=== PATIENT | female | born 1990 | race Caucasian/White ===

== ENCOUNTER 2016-05-18 19:02 | Observation (INO) | payer MEDICAID ==
--- NOTE | 2016-05-18 19:40 | EDM.PDOC ---
ED HPI GENERAL MEDICAL PROBLEM - General Chief Complaint: General Stated Complaint: SWALLOWED PEN Time Seen by Provider: 05/18/16 19:10 Source of Information: Reports: Patient, Police History Limitations: Reports: No limitations - History of Present Illness INITIAL COMMENTS - FREE TEXT/NARRATIVE: Pt was in court today. She felt stressed and about 11 am she swallowd a pen. She is now having pain in the epigastric area. She has swallowed many objects in the past. [facility] Onset: today, other ( at 11 am. ) Duration: Hour(s):, Other ( Pt is now haVING EPIGASTRIC PAIN. ) Location: Reports: abdomen Associated Symptoms: Reports: other ( ABDOMANAL PAIN. ) Right side Abdomen Pain Score (Numeric/FACES): 5 - Related Data Allergies Allergy/AdvReac Type Severity Reaction Status Date / Time codeine Allergy Rash Verified 05/18/16 19:15 [From Tylenol-Codeine #3] shellfish derived Allergy Swelling Verified 05/18/16 19:15 Home Meds: Home Meds OLANZapine [ZyPREXA] 5 mg PO DAILY 05/18/16 [History] OLANZapine [ZyPREXA] 10 mg PO BEDTIME 05/18/16 [History] Omeprazole 20 mg PO DAILY 05/18/16 [History] PARoxetine HCl [Paxil] 40 mg PO DAILY 05/18/16 [History] Past Medical History HEENT History: Reports: Impaired vision CLINICAL TRIAL LEADER History: Reports: Polycystic Ovaries Musculoskeletal History: Reports: Fracture Neurological History: Reports: Migraines Psychiatric History: Reports: ADD, Addiction, Anxiety, Bipolar, Depression Hematologic History: Reports: Other (see below) Other Hematologic History: Hep C - Infectious Disease History Infectious Disease History: Reports: Hepatitis C - Past Surgical History GI Surgical History: Reports: Appendectomy, Other (see below) Other GI Surgeries/Procedures: perforate stomach "after swallowing a paper clip ". 3 foreign body removal. Social & Family History - Tobacco Use Smoking Status *Q: Current Every Day Smoker Years of Tobacco use: 10 Packs/Tins Daily: 0.5 - Caffeine Use Caffeine Use: Reports: Energy drinks, Soda - Recreational Drug Use Recreational Drug Use: No Recreational Drug Type: Reports: Heroin, Methamphetamine Recreational Drug Use Frequency: Daily ED ROS GENERAL - Review of Systems Review Of Systems: See Below Constitutional: Reports: no symptoms HEENT: Reports: No symptoms Respiratory: Reports: No Symptoms Cardiovascular: Reports: No symptoms Endocrine: Reports: no symptoms GI/Abdominal: Reports: Abdominal pain, Other (PT ADMITTED TO SWALLOWING A PEN. ) : Reports: no symptoms Musculoskeletal: Reports: no symptoms Skin: Reports: no symptoms Neurological: Reports: No Symptoms Psychiatric: Reports: Agitation ED EXAM, GENERAL - Physical Exam Exam: See Below Free Text/Narrative:: pT WAS STRESSED IN COURT TODAY AND AT 11 AM SHE SWALLOWED A PEN. Exam Limited By: No limitations General Appearance: alert, anxious Ears: normal TMs Nose: normal inspection Throat/Mouth: Normal inspection Head: atraumatic Neck: normal inspection Respiratory/Chest: no respiratory distress Cardiovascular: regular rate, rhythm GI/Abdominal: other (PAIN IN THE EPIGASTRIC AREA) (Female) Exam: Deferred Rectal (Female) Exam: Deferred Back Exam: normal inspection Extremities: normal inspection, increased warmth Neurological: oriented Psychiatric: normal affect Course - Vital Signs Last Recorded V/S: Last Vital Signs Temp 36.6 C 05/18/16 19:11 Pulse 115 H 05/18/16 19:11 Resp 16 05/18/16 19:11 BP 138/97 H 05/18/16 19:11 Pulse Ox 97 05/18/16 19:11 - Orders/Labs/Meds Orders: Active Orders 24 hr Category Date Time Status Abdomen Series w Chest 1V [CR] Stat Exams 05/18/16 19:32 Taken COMPREHENSIVE METABOLIC PN,CMP [CHEM] Urgent Lab 05/18/16 19:50 Received Sodium Chloride 0.9% [Normal Saline] 1,000 ml Med 05/18/16 19:45 Active IV ASDIRECTED Medication Orders Sodium Chloride (Normal Saline) 1,000 mls @ 999 mls/hr IV ASDIRECTED SERVANDO Labs: Laboratory Tests 05/18/16 05/18/16 05/18/16 Range/Units 19:50 19:55 19:55 WBC 8.2 (4.5-11.0) K/uL RBC 4.52 (3.30-5.50) M/uL Hgb 12.7 (12.0-15.0) g/dL Hct 38.5 (36.0-48.0) % MCV 85 (80-98) fL MCH 28 (27-31) pg MCHC 33 (32-36) % Plt Count 252 (150-400) K/uL Neut % (Auto) 62 (36-66) % Lymph % (Auto) 24 (24-44) % [place] % (Auto) 11 H (2-6) % Eos % (Auto) 2 (2-4) % Baso % (Auto) 1 (0-1) % Urine Color Yellow Urine Appearance Cloudy Urine pH 8.0 (4.5-8.0) Ur Specific [place] 1.015 (1.008-1.030) Urine Protein Negative (NEGATIVE) mg/dL Urine Glucose (UA) Normal (NEGATIVE) mg/dL Urine Ketones Negative (NEGATIVE) mg/dL Urine Occult Blood Negative (NEGATIVE) Urine Nitrite Negative (NEGATIVE) Urine Bilirubin Negative (NEGATIVE) Urine Urobilinogen Normal (NORMAL) mg/dL Ur Leukocyte Esterase Negative (NEGATIVE) Urine RBC 0-5 (0-5) Urine WBC 0-5 (0-5) Ur Epithelial Cells Moderate Amorphous Sediment Many Urine Bacteria Many Urine Mucus Not seen Urine HCG, Qual Negative Meds: Medications Generic Name Dose Route Start Last Admin Trade Name Freq PRN Reason Stop Dose Admin Sodium Chloride 1,000 mls @ 999 mls/hr 05/18/16 19:45 Normal Saline IV ASDIRECTED [facility] - Re-Assessments/Exams Free Text/Narrative Re-Assessment/Exam: 05/18/16 20:22 PT HAD A FLAT PLATE OF THE ABDOMAN WHICH SHOWED A PEN INTACT. iT STILL REMAINS IN THE STOMACH BUBBLE. Departure - Departure Time of Disposition: 20:23 Disposition: Admitted As Inpatient 68 Condition: fair Clinical Impression: Foreign body in stomach Forms: ED Department Discharge Care Plan Goals: ADMIT TO dR Kim - My Orders Last 24 Hours: My Active Orders 05/18/16 19:32 Abdomen Series w Chest 1V [CR] Stat 05/18/16 19:45 Sodium Chloride 0.9% [Normal Saline] 1,000 ml IV ASDIRECTED 05/18/16 19:50 COMPREHENSIVE METABOLIC PN,CMP [CHEM] Urgent - Assessment/Plan Last 24 Hours: My Active Orders 05/18/16 19:32 Abdomen Series w Chest 1V [CR] Stat 05/18/16 19:45 Sodium Chloride 0.9% [Normal Saline] 1,000 ml IV ASDIRECTED 05/18/16 19:50 COMPREHENSIVE METABOLIC PN,CMP [CHEM] Urgent
[2016-05-18] MEDS ORDERED: Sodium Chloride 0.9% 1,000 ML IV SCH (19:45)
[2016-05-18] MEDS ORDERED: fentaNYL 100 MCG/2 ML SDV ONE (20:29)
[2016-05-18] MEDS ORDERED: Midazolam 1 MG/ML 2 ML SDV ONE (20:29)
[2016-05-18] MEDS ORDERED: Propofol 200 MG/20 ML SDV ONE ×2 (20:29→21:14)
[2016-05-18] MEDS ORDERED: Ondansetron 4 MG/2 ML SDV IVPUSH PRN (21:21)
[2016-05-18] MEDS ORDERED: Zolpidem 5 MG Tab PO PRN (21:21)
[2016-05-18] MEDS ORDERED: diphenhydrAMINE 50 MG/ML SDV IVPUSH PRN (21:21)
[2016-05-18] MEDS ORDERED: Docusate Sodium 100 MG Cap PO PRN (21:21)
[2016-05-18] MEDS ORDERED: Bisacodyl 5 MG Tab PO PRN (21:21)
[2016-05-18] MEDS ORDERED: Metoclopramide 10 MG/2 ML SDV IV PRN (21:21)
[2016-05-18] MEDS ORDERED: Promethazine 25 MG/ML SDV IM PRN (21:21)
[2016-05-18] MEDS: Benzocaine/Cetylpyridinium/Menthol Lozenge MUCMEM PRN (22:47)
--- NOTE | 2016-05-19 08:13 | CONS ---
DATE OF SERVICE: 05/18/2016 REFERRING PHYSICIAN: CONSULTING PHYSICIAN: Dillan Palomo MD This is a consult from Dr. Downs. REASON FOR CONSULTATION: Foreign body. HISTORY OF PRESENT ILLNESS: She is a 26-year-old female, who apparently swallowed a pen in court today. The patient presents with epigastric pain. This is an ongoing problem. She has swallowed many foreign bodies in the past. PAST MEDICAL HISTORY: Swallowing foreign bodies such as pens and paper clips previously. Impaired vision, polycystic ovarian disease, migraines, attention deficit disorder, addiction, anxiety, bipolar, depression, hepatitis C. SURGICAL HISTORY: Exploratory laparotomy for foreign body removal. SOCIAL HISTORY: She is currently a smoker. FAMILY HISTORY: Noncontributory. REVIEW OF SYSTEMS: GENERAL: She is appropriate for her condition. HEENT: No symptoms. RESPIRATORY: No shortness of breath. CARDIOVASCULAR: No chest pain. ENDOCRINE: No symptoms. GASTROINTESTINAL: As above. GENITOURINARY: No dysuria. MUSCULOSKELETAL: No symptoms. The remainder systems reviewed and is negative. PHYSICAL EXAMINATION: VITAL SIGNS: Stable. HEENT: Pupils equal, round, and reactive to light. NECK: Supple and nontender. CARDIOVASCULAR: Regular rhythm and rate. RESPIRATORY: Lungs clear to consultation bilaterally. ABDOMEN: Bowel sounds positive. EXTREMITIES: Full range of motion. Strength 5/5. NEUROLOGICAL: Alert and oriented x3. PSYCH: No gross depression. IMAGING: I did review the x-ray which shows foreign body. LABORATORY RESULTS: Show hemoglobin 12.7. ASSESSMENT: Foreign body. PLAN: We will take the patient to the operating room to see if we can remove this via EGD. If this is refractory to this, we will perform an exploratory laparotomy and subsequent gastric resection. We discussed risks, benefits, alternatives, and limitations, including, but not limited to infection, bleeding, and perforation. The patient understands these risks and wishes to proceed. Dillan Palomo MD /[id number]
[2016-05-19] MEDS ORDERED: Iohexol 300 MG/ML 30 ML Bottle PO ONE (08:15)
--- NOTE | 2016-05-19 08:16 | OR ---
DATE OF PROCEDURE: 05/18/2016 PROCEDURE: EGD. FINDINGS: Foreign body (ink pen). COMPLICATIONS: None. MANAGER ED: None. ANESTHETIC: MAC. INDICATIONS: A 26-year-old female, who swallowed an ink pen. This happened earlier today. This is an ongoing problem. She swallowed several of these. Risks, benefits, alternatives, and limitations, including, infection, bleeding, and perforation were explained to the patient. We also discussed the plan, which will be EGD and any evidence of perforation will require exploratory laparotomy. We also discussed the possibility of delayed perforation, the role of CT scan and the role of the emergency room once discharged. PROCEDURE IN DETAIL: The patient was placed in left lateral decubitus position. The EGD scope was introduced and advanced atraumatically to the gastric body. The pen was noted to be a light black ink ball standard pen. This was grasped with Lasso near the tip and this was brought in to the camera lens (using the camera as a shield for the tip of the pen). This was then drawn back into the esophagus and through the mouth. Once this was in the mouth, forceps was used to extract this. The scope was then reintroduced and the duodenum, stomach, and esophagus were inspected twice. This was performed by reducing the scope. Small amount of bleeding in the cavity, however, this was not consistent with the pen hitting the palate of the mouth. No other abnormalities noted. The patient tolerated the procedure well. Dillan Palomo MD /[id number]
[2016-05-19] MEDS ORDERED: Iohexol 647 MG/ML 10 ML SDV PO PRN (08:41)
--- NOTE | 2016-05-19 08:45 | CR ---
Heart size within normal limits. No focal consolidation. No pneumothorax. There is a pen within the stomach. No gross evidence for free air. Large amount of fecal residual.
--- NOTE | 2016-05-19 09:11 | PN ---
DATE OF SERVICE: 05/19/2016 SUBJECTIVE: The patient is doing well. She has no complaints. Her pain is absent. No nausea, vomiting, shortness of breath, or chest pain. OBJECTIVE: VITAL SIGNS: Stable. She remains afebrile. CARDIOVASCULAR: Regular rate and rhythm. RESPIRATORY: Lungs are clear to auscultation bilaterally. ABDOMEN: Bowel sounds positive. IMAGING: Radiology was unable to determine if there is a free air component. Therefore, we will send the patient for CT scan for evaluation for possible perforation. If this is negative, the patient will be discharged today. We discussed diet, activity, followup, and the role of the emergency room. Dillan Palomo MD /[id number]
--- NOTE | 2016-05-19 09:41 | CT ---
CT chest and abdomen indication: Swallowed a foreign body, a pen Total DLP 389. Findings: There is a metallic foreign body within the distal esophagus extending into the fundus of the stomach. This can be consistent with a paper clip. No evidence for air surrounding the esophagus or definitive rupture. No focal consolidation. No pneumothorax. No focal consolidation. Liver withi n normal limits. Bilateral adrenal glands are unremarkable. Pancreas within normal limits. Spleen wi thin normal limits. Impression: 1. There is a paper clip within the lower esophagus extending into the stomach. No gross evidence fo r rupture.
--- NOTE | 2016-05-19 09:43 | CR ---
No metallic foreign body about the pelvic soft tissues.
[2016-05-19] MEDS ORDERED: Propofol 200 MG/20 ML SDV ONE ×3 (15:22→15:50)
[2016-05-19] MEDS ORDERED: Midazolam 1 MG/ML 5 ML SDV ONE (15:22)
[2016-05-19] MEDS ORDERED: fentaNYL 100 MCG/2 ML SDV ONE ×2 (15:22→15:49)
[2016-05-19] MEDS: Acetaminophen 325 MG Tab PO PRN (19:32)
[2016-05-19] MEDS: Benzocaine/Cetylpyridinium/Menthol Lozenge MUCMEM PRN (19:32)
--- NOTE | 2016-05-20 07:25 | OR ---
DATE OF PROCEDURE: 05/19/2016 PROCEDURE: EGD with removal of foreign body. FINDINGS: Paper clip in distal esophagus/stomach. COMPLICATIONS: None. PREP ROOM SUPERVISOR: None. ANESTHESIA: MAC. PREOPERATIVE DIAGNOSIS: Intentional digestion of foreign body/paper clip. POSTOPERATIVE DIAGNOSIS: Intentional digestion of foreign body/paper clip. INDICATION: Risks, benefits, alternatives, and limitations, including, but not limited to infection, bleeding, and perforation were explained to the patient again. PROCEDURE IN DETAIL: The patient was placed in left lateral decubitus position. The EGD scope was introduced with an overtube, which was then extended to approximately the mid esophagus. The scope was advanced and the paper clip was identified at the aforementioned location. An NG tube was also passed along as the original idea was to place the paper clip into the NG tube. This was unable to be performed due to the general aspect and the fact that the paper clip was also bent at a moderate angle. Therefore the paper clip was able to be grasped using the cold grasper forceps. This then allowed the grasper to be pulled close to the camera, using the camera as a forward shield and having the grasper at the defined end of the paper clip preventing it from perforation. This was then removed via the overtube without difficulty. At no point was the paper clip pulled on or the grasper pulled on to cause tearing. There was one area where the paper clip was originally lying with a small amount of petechiae. There was no evidence of perforation. This was inspected for greater than one minute, thoroughly irrigated and no evidence of injury. Therefore, 10 mL of Tisseel was placed over this. The air was removed. The overtube was removed. The patient tolerated the procedure well. Dillan Palomo MD /[id number]
[2016-05-20 07:43] VITALS: BP 110/64
[2016-05-20] MEDS: Acetaminophen 325 MG Tab PO PRN (07:47)
[2016-05-20] MEDS: Benzocaine/Cetylpyridinium/Menthol Lozenge MUCMEM PRN (07:47)
--- NOTE | 2016-05-24 12:03 | DISCH ---
DISCHARGE DIAGNOSIS: Status post EGD and removal of foreign bodies x3. HOSPITAL SUMMARY: A 26-year-old female who was incarcerated and swallowed a pen. The patient underwent removal of this and subsequent CT scan showed no abnormalities. The patient was scheduled for discharge on postoperative day 1, and subsequently swallowed a paper clip which she had retained in her vagina. This was subsequently removed and a CT scan was again performed which showed no abnormality. On the postoperative day #3, the patient swallowed her discharge pen. This was then again subsequently removed and the patient would be scheduled for discharge. FOLLOWUP: The patient is scheduled for followup abdominal films due to the large amount of radiation that she has received in the 24 hours which would preclude her from a repeat CT scan. We discussed risks, benefits, alternatives, and limitations of this continued plan and discussed the risks of radiation and not having a repeat CT scan. She understands the importance of returning for repeat abdominal films for concern for perforation. DIET: As tolerated. ACTIVITY: As tolerated.
== END 2016-05-20 10:50 | disposition home or self-care (01) ==
LOC: JP.ED 19:02 → JP.SDS 20:34 → JP.MS 21:21 → JP.ICU 05-19 09:50
PROVIDERS: ADMIT Surgery; ATTEND Surgery
PROC: 0DC68ZZ Extirpation of Matter from Stomach, Via Natural or Artificial Opening Endoscopic (ICD-10-PCS; principal; 2016-05-18)
DX: T18.198A Other foreign object in esophagus causing other injury, initial encounter (principal); F41.9 Anxiety disorder, unspecified; F32.9 Major depressive disorder, single episode, unspecified; Z88.8 Allergy status to other drugs, medicaments and biological substances; Z91.013 Allergy to seafood; Z79.899 Other long term (current) drug therapy; Z90.49 Acquired absence of other specified parts of digestive tract; Z98.890 Other specified postprocedural states; F17.210 Nicotine dependence, cigarettes, uncomplicated
CPT/HCPCS: 36415; 43247; 71250; 72170; 74000; 74022; 74150; 74176; 80053; 81001; 81025; 85025; 85027; 86803; 87340; 87449; 99285; A9270; G0378; J2250; J2704; J3010; J7040

== ENCOUNTER 2016-05-20 13:44 | Day surgery (SDC) | payer MEDICAID ==
[~2016-05-20 13:44] MED LIST: Midazolam 1 MG/ML 2 ML SDV ONE; Propofol 200 MG/20 ML SDV ONE; fentaNYL 100 MCG/2 ML SDV ONE
[2016-05-20] MEDS ORDERED: Sodium Chloride 0.9% 1,000 ML IV SCH (14:30)
[2016-05-20] MEDS ORDERED: Propofol 200 MG/20 ML SDV ONE (14:51)
[2016-05-20 16:03] VITALS: BP 103/65
--- NOTE | 2016-05-21 11:30 | OR ---
DATE OF PROCEDURE: 05/20/2016 PROCEDURE: Esophagogastroduodenoscopy with removal of foreign body. FINDINGS: 1. An ink pen noted in the stomach. 2. No other gross abnormalities. COMPLICATIONS: None. EDUCATION FACULTY MEMBER: None. ANESTHESIA: MAC. INDICATIONS: A 26-year-old female, who swallowed a pen today and requiring removal of this. Risks, benefits, alternatives, and limitations were again reviewed with the patient and they understand and wished to proceed. PROCEDURE IN DETAIL: The patient was placed in left lateral decubitus position. EGD scope was introduced and advanced atraumatically to the second part of the duodenum. There was noted be food retained in the stomach. A blue pen was noted to be fully intact in the stomach. This was grasped with snare and removed in a retrograde fashion. At no time was there any undue pressure, or was the pen advanced without direct visualization. This was then placed into an overtube and subsequently removed. The patient tolerated the procedure well. Of note due to the patient's large amount of radiation, she would be receiving a followup abdominal flat and upright films for free air tomorrow in review with Radiology. The patient has had significant radiation in the last 24 hours. Dillan Palomo MD /[id number]
== END 2016-05-20 15:44 | disposition other institution (70) ==
LOC: JP.SDS 13:44
PROVIDERS: ATTEND Surgery
DX: T18.2XXA Foreign body in stomach, initial encounter (principal); Z88.8 Allergy status to other drugs, medicaments and biological substances; Z91.013 Allergy to seafood
CPT/HCPCS: 43247; J2250; J2704; J3010; J7040